=== PATIENT | female | born 1990 | race Caucasian/White ===

== ENCOUNTER 2023-06-01 10:39 | Outpatient (CLI) | payer BC | END 2023-06-01 10:40 | disposition home or self-care (01) | LOC: BICULT 10:39 | DX: N63.20 Unspecified lump in the left breast, unspecified quadrant (principal) ==

== ENCOUNTER 2024-08-15 14:57 | Outpatient (CLI) | payer OTHER | END 2024-08-15 14:58 | disposition home or self-care (01) | LOC: RAD 14:57 | PROVIDERS: ATTEND Physician Assistant | DX: R07.9 Chest pain, unspecified (principal) | CPT/HCPCS: 71046 ==